=== PATIENT | male | born 1985 | race Caucasian/White ===

== ENCOUNTER 2022-10-27 23:27 | Emergency (ER) | payer OTHER ==
[2022-10-27] MEDS ORDERED: Octyl 2-Cyanoacrylate 1 g/1 mL 1 APPLIC PEN TOP ONE (23:48)
[2022-10-27] MEDS ORDERED: Lidocaine/Epineph/Tetracaine 3 ML Syringe TOP ONE (23:48)
== END 2022-10-28 01:01 | disposition home or self-care (01) ==
LOC: MW.ED 23:27
DX: S61.401A Unspecified open wound of right hand, initial encounter (principal); W23.0XXA Caught, crushed, jammed, or pinched between moving objects, initial encounter; Y92.89 Other specified places as the place of occurrence of the external cause; Y99.0 Civilian activity done for income or pay
CPT/HCPCS: 12001; 36415; 80305; 80307; 99283; A9270